=== PATIENT | female | born 1990 | race Asian ===

== ENCOUNTER 2019-03-18 10:22 | Emergency (ER) | payer SELFPAY ==
[~2019-03-18] VITALS: Ht 170.2 cm; Wt 50.0 kg
[2019-03-18] MEDS ORDERED: ONDANSETRON 4MG ODT PO ONE (11:15)
[2019-03-18] MEDS ORDERED: DIPHENOXYLATE/ATROPINE 2.5/0.025MG TABLET PO ONE (11:15)
[2019-03-18] MEDS ORDERED: ACETAMINOPHEN 325MG TABLET PO ONE (11:15)
[2019-03-18 12:40] VITALS: BP 102/64
== END 2019-03-18 12:40 | disposition home or self-care (01) ==
LOC: ER 10:22
DX: A08.4 Viral intestinal infection, unspecified (principal); Z98.890 Other specified postprocedural states
CPT/HCPCS: 81025; 87015; 87045; 87427; 87449; 89055; 99284; Q0162